=== PATIENT | female | born 1985 | race Caucasian/White ===

== ENCOUNTER 2018-04-30 13:08 | Emergency (ER) | payer OTHER ==
[~2018-04-30] VITALS: Ht 149.9 cm; Wt 99.8 kg
[2018-04-30 13:28] VITALS: BP 122/82
--- NOTE | 2018-04-30 13:34 | Emergency Room Report ---
History of Present Illness General Chief Complaint: Vomiting Source: Patient Present Illness HPI Patient is a 33-year-old female presenting for nausea and vomiting for the past 2 days. She states the symptoms have been worsening. She has been on any control pill and thinks this may be the cause. 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 She has also been using cannabis. She denies other symptoms including F, Chills, [place], blurred vision, SOB, CP, diarrhea, constipation, hematemesis Allergies: Coded Allergies: No Known Allergies (Unverified , 04/30/18) Patient History Past Medical History: see triage record Pertinent Family History: none Last Menstrual Period: 04/22/18 Now: No : 0 Reviewed Nursing Documentation: PMH: Agreed; PSxH: Agreed Nursing Documentation-PMH Past Medical History: No History, Except For Hx Neurological Problems: Yes - PTSD, Scoliosis, depression Review of Systems All Other Systems: negative except mentioned in HPI Physical Exam Vital Signs Date Time Temp Pulse Resp B/P (MAP) Pulse Ox O2 Delivery O2 Flow Rate FiO2 04/30/18 13:18 98.1 78 18 122/82 95 Room Air 98.1 Sp02 EP Interpretation: reviewed, normal General Appearance: no apparent distress, alert, GCS 15, non-toxic Head: normocephalic, atraumatic Respiratory: chest non-tender, lungs clear, normal breath sounds, speaking full sentences Cardiovascular #1: regular rate, rhythm, no edema Gastrointestinal: normal bowel sounds, non tender, soft, non-distended, no guarding, no rebound Genitourinary: normal inspection, no CVA tenderness Musculoskeletal: back normal, gait/station normal, normal range of motion, non- tender Neurologic: alert, oriented x3, responsive, motor strength/tone normal, sensory intact, speech normal Psychiatric: judgement/insight normal, memory normal, mood/affect normal, no suicidal/homicidal ideation Skin: normal color, no rash, warm/dry, well hydrated Medical Decision Making PA Attestation Dr. Hurtado is my supervising physician. Patient management was discussed with my supervising physician Diagnostic Impression: Primary Impression: Nausea & vomiting Qualified Codes: R11.2 - Nausea with vomiting, unspecified Additional Impression: Urinary tract infection Qualified Codes: N39.0 - Urinary tract infection, site not specified; R31.9 - Hematuria, unspecified ER Course Patient is a 33-year-old female presenting for nausea and vomiting for the past 2 days Differential diagnosis considered not limited to: Cyclic vomiting syndrome, gastroenteritis, , appendicitis, urinary tract infection, among others Physical exam: Afebrile. No apparent distress RRR. Lungs clear to auscultation bilaterally Abdomen soft and nontender. Normal bowel sounds. Nondistended. Labs show significant leukocytosis and signs of slight dehydration. Urinalysis also shows signs of infection The patient is given IV fluids, Zofran, Reglan, and a dose of Rocephin She is feeling significantly better and states that she would like to be discharged home. I encouraged her to stay in order for imaging to be done due to the significant leukocytosis. She declined and stated that she will follow- up with her primary doctor. I gave her ER precautions to return She is given prescription for antibiotics for UTI and Reglan. Laboratory Tests Test 04/30/18 13:44 04/30/18 13:50 04/30/18 15:15 Urine Color Yellow Urine Appearance Slightly cloudy Urine pH 6 (4.5-8.0) Urine Specific [place] 1.025 (1.005-1.035) Urine Protein 4+ (NEGATIVE) H Urine Glucose (UA) Negative (NEGATIVE) Urine Ketones 4+ (NEGATIVE) H Urine Blood 5+ (NEGATIVE) H Urine Nitrite Positive (NEGATIVE) H Urine Bilirubin 2+ (NEGATIVE) H Urine Ictotest Negative (NEGATIVE) Urine Urobilinogen 4 MG/DL (0.0-1.0) H Urine Leukocyte Esterase 2+ (NEGATIVE) H Urine RBC 5-10 /HPF (0 - 2) H Urine WBC 5-10 /HPF (0 - 2) H Urine Squamous Epithelial Cells Moderate /LPF (NONE/OCC) H Urine Bacteria Moderate /HPF (NONE) H Urine HCG, Qualitative Negative (NEGATIVE) Urine Opiates Screen Negative (NEGATIVE) Urine Barbiturates Screen Negative (NEGATIVE) Phencyclidine (PCP) Screen Negative (NEGATIVE) Urine Amphetamines Screen Negative (NEGATIVE) Urine Benzodiazepines Screen Negative (NEGATIVE) Urine Cocaine Screen Negative (NEGATIVE) Urine Marijuana (THC) Screen Positive (NEGATIVE) H White Blood Count 19.4 K/UL (4.8-10.8) H 18.8 K/UL (4.8-10.8) H Red Blood Count 6.00 M/UL (4.20-5.40) H 5.56 M/UL (4.20-5.40) H Hemoglobin 16.9 G/DL (12.0-16.0) H 16.4 G/DL (12.0-16.0) H Hematocrit 49.5 % (37.0-47.0) H 46.1 % (37.0-47.0) Mean Corpuscular Volume 82 FL (80-99) 83 FL (80-99) Mean Corpuscular Hemoglobin 28.1 PG (27.0-31.0) 29.5 PG (27.0-31.0) Mean Corpuscular Hemoglobin Concent 34.1 G/DL (32.0-36.0) 35.6 G/DL (32.0-36.0) Red Cell Distribution Width 11.4 % (11.6-14.8) L 11.4 % (11.6-14.8) L Platelet Count 475 K/UL (150-450) H 449 K/UL (150-450) Mean Platelet Volume 6.5 FL (6.5-10.1) 5.6 FL (6.5-10.1) L Neutrophils (%) (Auto) % (45.0-75.0) % (45.0-75.0) Lymphocytes (%) (Auto) % (20.0-45.0) % (20.0-45.0) Monocytes (%) (Auto) % (1.0-10.0) % (1.0-10.0) Eosinophils (%) (Auto) % (0.0-3.0) % (0.0-3.0) Basophils (%) (Auto) % (0.0-2.0) % (0.0-2.0) Differential Total Cells Counted 100 100 Neutrophils % (Manual) 78 % (45-75) H 80 % (45-75) H Lymphocytes % (Manual) 17 % (20-45) L 15 % (20-45) L Monocytes % (Manual) 5 % (1-10) 5 % (1-10) Eosinophils % (Manual) 0 % (0-3) 0 % (0-3) Basophils % (Manual) 0 % (0-2) 0 % (0-2) Band Neutrophils 0 % (0-8) 0 % (0-8) Platelet Estimate Adequate Adequate Platelet Morphology Normal Normal Red Blood Cell Morphology Normal Normal Sodium Level 134 MMOL/L (136-145) L Potassium Level 3.4 MMOL/L (3.5-5.1) L Chloride Level 95 MMOL/L (98-107) L Carbon Dioxide Level 21 MMOL/L (21-32) Anion Gap 18 mmol/L (5-15) H Blood Urea Nitrogen 13 mg/dL (7-18) Creatinine 0.9 MG/DL (0.55-1.30) Estimate Glomerular Filtration Rate > 60 mL/min (>60) Glucose Level 138 MG/DL (74-106) H Calcium Level 9.5 MG/DL (8.5-10.1) Total Bilirubin 1.0 MG/DL (0.2-1.0) Aspartate Amino Transferase (AST) 36 U/L (15-37) Alanine Aminotransferase (ALT) 30 U/L (12-78) Alkaline Phosphatase 62 U/L (46-116) Total Protein 9.0 G/DL (6.4-8.2) H Albumin 3.8 G/DL (3.4-5.0) Globulin 5.2 g/dL Albumin/Globulin Ratio 0.7 (1.0-2.7) L Lipase 59 U/L (73-393) L Lab Results Impression Labs show significant leukocytosis and signs of slight dehydration. Urinalysis also shows signs of infection Last Vital Signs Date Time Temp Pulse Resp B/P (MAP) Pulse Ox O2 Delivery O2 Flow Rate FiO2 04/30/18 13:18 98.1 78 18 122/82 95 Room Air 98.1 Status: improved Disposition: HOME, SELF-CARE Condition: Improved Scripts Nitrofurantoin Monohyd/M-Cryst* (MACROBID 100 MG*) 100 Mg Capsule 100 MG ORAL EVERY 12 HOURS, #14 CAP Prov: TERZIAN,HEIDI P.A. 04/30/18 Metoclopramide Hcl* (REGLAN*) 5 Mg Tablet 5 MG ORAL EVERY 6 HOURS, #20 TAB Prov: THERESAAN,HEIDI P.A. 04/30/18 HEIDI RAMOS P.A. Apr 30, 2018 13:34
[2018-04-30 13:53] LABS: APPEARANCE,URINE SLIGHTLY CLOUDY; BILIRUBIN, URINE 2+ (NEGATIVE); GLUCOSE, URINE (UA) NEGATIVE (NEGATIVE); KETONES,URINE 4+ (NEGATIVE); LEUKOCYTE ESTERASE ,URINE 2+ (NEGATIVE); NITRITE,URINE POSITIVE (NEGATIVE); PH,URINE 6 (4.5-8.0); PROTEIN,URINE 4+ (NEGATIVE); UROBILINOGEN,URINE 4 MG/DL (0.0-1.0)
[2018-04-30 14:00] LABS: HEMATOCRIT 49.5 % (37.0-47.0); HEMOGLOBIN 16.9 G/DL (12.0-16.0); MEAN CORPUSCULAR VOLUME 82 FL (80-99); PLATELET COUNT 475 K/UL (150-450); RED CELL DISTRIBUTION WIDTH 11.4 % (11.6-14.8); WHITE BLOOD COUNT 19.4 K/UL (4.8-10.8)
[2018-04-30 14:18] LABS: ANION GAP 18 mmol/L (5-15); BLOOD UREA NITROGEN 13 mg/dL (7-18); CALCIUM 9.5 MG/DL (8.5-10.1); CARBON DIOXIDE 21 MMOL/L (21-32); CHLORIDE 95 MMOL/L (98-107); CREATININE 0.9 MG/DL (0.55-1.30); POTASSIUM 3.4 MMOL/L (3.5-5.1); SODIUM 134 MMOL/L (136-145)
[2018-04-30 14:23] LABS: ALANINE AMINOTRANSFERASE 30 U/L (12-78); ALBUMIN 3.8 G/DL (3.4-5.0); ALBUMIN/GLOBULIN RATIO 0.7 (1.0-2.7); ALKALINE PHOSPHATASE 62 U/L (46-116); ASPARTATE AMINO TRANSFERASE 36 U/L (15-37)
[2018-04-30 14:23] LABS: COLOR,URINE YELLOW
[2018-04-30] MEDS ORDERED: Metoclopramide 10mg/2ml Inj IVP ONE (14:30)
[2018-04-30] MEDS ORDERED: cefTRIAXone 1 GM in NS 55 ML IVPB ONE (15:15)
[2018-04-30 15:25] LABS: HEMATOCRIT 46.1 % (37.0-47.0); HEMOGLOBIN 16.4 G/DL (12.0-16.0); MEAN CORPUSCULAR VOLUME 83 FL (80-99); PLATELET COUNT 449 K/UL (150-450); RED BLOOD COUNT 5.56 M/UL (4.20-5.40); RED CELL DISTRIBUTION WIDTH 11.4 % (11.6-14.8); WHITE BLOOD COUNT 18.8 K/UL (4.8-10.8)
[2018-04-30] MEDS ORDERED: REGLAN5 MG ORAL (15:41)
[2018-04-30] MEDS ORDERED: NITROFURANTOIN100 M2 ORAL (15:41)
[2018-04-30 15:45] VITALS: BP 127/80
== END 2018-04-30 15:45 | disposition home or self-care (01) ==
LOC: EMR 14:59
DX: R11.2 Nausea with vomiting, unspecified (principal); N39.0 Urinary tract infection, site not specified; R31.9 Hematuria, unspecified; E86.0 Dehydration; D72.829 Elevated white blood cell count, unspecified; F43.10 Post-traumatic stress disorder, unspecified; F17.200 Nicotine dependence, unspecified, uncomplicated; M41.9 Scoliosis, unspecified; F32.9 Major depressive disorder, single episode, unspecified
CPT/HCPCS: 36415; 80053; 80307; 81003; 81025; 83690; 85007; 85025; 87086; 96361; 96365; 96375; 99285; J0696; J2405; J2765; S0028